=== PATIENT | female | born 2000 | race American Indian/Alaskan Native ===

== ENCOUNTER 2022-02-08 14:01 | Outpatient (CLI) | payer MEDICAID ==
[2022-02-08] MEDS ORDERED: LACTATED RINGERS 1,000 ML IV ONE (15:01)
[2022-02-08 17:16] LABS: Bacteria,Urine 1+ /HPF (Negative); Mucus,Urine FEW /HPF
[2022-02-08 17:25] LABS: Color,Urine Yellow (Yellow)
[2022-02-08 17:26] LABS: RBC,Urine < 1.0 /HPF (0.0-6.0); WBC,Urine < 1.0 /HPF (0.0-6.0)
[2022-02-08 17:28] LABS: Calcium 8.7 mg/dL (8.4-10.2); Hemolysis Index 1
[2022-02-08 17:57] LABS: Alanine Aminotransferase 6 units/L (7-56); Albumin 3.6 g/dL (3.9-5); Blood Urea Nitrogen 4 mg/dL (7-17)
[2022-02-08 17:58] LABS: BUN/Creatinine Ratio 10
[2022-02-08 19:22] VITALS: BP 124/84
--- NOTE | 2022-02-09 06:27 | Ultrasound Report ---
US OB limited, US OB BPP wo non-stress INDICATION / CLINICAL INFORMATION: bpp/glen COMPARISON: None available. TECHNIQUE: Using a transcutaneous probe, multiple grayscale, color Doppler, and spectral Doppler imag es of the uterus and fetus were captured and stored. biophysical profile additionally performed . FINDINGS: biophysical profile score 8/8. Single cephalic fetus with heart rate 143 bpm. Amniotic fluid index is within normal limits measuring 8.2 cm. Estimated gestational age 36 weeks 5 days. IMPRESSION: 1. Normal biophysical profile score. Normal GLEN. Signer Name: Israel Dangelo II, MD Signed: 02/09/2022 6:22 AM Workstation Name: [id number]
== END 2022-02-08 18:38 | disposition home or self-care (01) ==
LOC: TRG 14:01 → APU 14:02 → TRG 18:38
PROVIDERS: ATTEND Obstetrics & Gynecology
DX: O62.9 Abnormality of forces of labor, unspecified (principal); Z3A.36 36 weeks gestation of pregnancy; Z87.891 Personal history of nicotine dependence
CPT/HCPCS: 36415; 59025; 76815; 76819; 80053; 81001; 96360